=== PATIENT | male | born 1990 | race Caucasian/White ===

== ENCOUNTER 2017-01-27 17:43 | Emergency (ER) | payer MEDICARE, OTHER ==
[~2017-01-27 17:43] MED LIST: ADDERALL PO; ALPRAZOLAM PO; BACTRIM DS TABL1 TA1 PO; BACTROBAN22 GM TOP; CIPRO PO; KEFLEX500 MG PO; MEDROL4 MG/DOSE- PO; NO MEDICATIONS; PHENERGAN25 MG PO
== END 2017-01-27 20:25 | disposition home or self-care (01) ==
LOC: SED 17:43
DX: T40.1X1A Poisoning by heroin, accidental (unintentional), initial encounter (principal); Z88.8 Allergy status to other drugs, medicaments and biological substances
CPT/HCPCS: 99282